=== PATIENT | male | born 1965 | race Caucasian/White ===

== ENCOUNTER → 2016-08-12 | Outpatient (CLI) | payer BC, OTHER ==
[~2016-08-12] VITALS: Ht 177.8 cm; Wt 92.1 kg
[~2016-08-12] MED LIST: ATORVASTATIN CA40 MG PO; COQ-10100 MG PO; FISH OIL 1,001000 M2 PO; IRBESARTAN150 MG PO; UNICOMPLEX M TA1 TA1 PO
--- NOTE | ~2016-08-12 | HPC ---
[facility] [place] [address] PAIN MANAGEMENT CONSULTATION Name: ARCHANA ORTEZ Room #: REG [facility] Olga.#: [id number] Admission: 08/12/16 Attend Phys: Ray Wise DO Discharge: Date of : 63 Report #: [id number] THIS REPORT FOR: //name// CC: Ray Wise DATE OF SERVICE: 08/12/2016 DATE OF SERVICE: 08/12/2016 CHIEF COMPLAINT: Low back pain, right lower extremity pain and paresthesias. HISTORY OF PRESENT ILLNESS: As you know, the patient is a very pleasant 50-year-old male, who has had a longstanding history of low back pain, right lower extremity pain and paresthesias. The patient states his pain began 09/29/2015. He denies injury or trauma that may have led to symptoms. He states he has trial multiple conservative treatments, but has yet to see significant pain improvement. He has seen multiple physicians and will ultimately indicates that his pain is due to changes in his lumbar region. He has been referred to our clinic for evaluation with recent imaging studies. He indicates today his pain is intermittent, describes pain as aching, places the current pain score 4/10, daily average of 5/10, worst the pain has been is 5/10. The patient states that sitting, standing for any length of time exacerbates symptoms, ice and stretching tends to improve pain. He has been referred for evaluation for suspected lumbar radiculopathy. PAST MEDICAL HISTORY: 1. Dyslipidemia. 2. Hypertension. PAST SURGICAL HISTORY: None. SOCIAL HISTORY: The patient denies tobacco, IV or illicit drug use. Admits to approximately 2 alcoholic beverages per day. He is a real estate legal secretary. He is working, not receiving workmen's compensation nor is he trying to obtain disability benefits. He is not in litigation in regards to his pain. He is unaccompanied at today's visit. REVIEW OF SYSTEMS: Positive for decrease in appetite, low back pain, right lower extremity pain, hypertension. All other review of systems negative per 12-point review of systems other than those listed in history of present illness. Pain impact score 25/70 indicating mild to moderate interference of daily activities secondary to pain. [address] [address] PAIN MANAGEMENT CONSULTATION Name: ARCHANA ORTEZ Room #: REG [facility] Olga.#: [id number] Admission: 08/12/16 Attend Phys: Ray Wise DO Discharge: Date of : 63 Report #: [id number] ALLERGIES: No known drug allergies. CURRENT MEDICATIONS: Coenzyme Q 100 mg once a day, multivitamin 1 tab per day, omega-3 fish oil 1 tab per day, atorvastatin 40 mg per day, irbesartan 150 mg once a day. IMAGING: MRI of the lumbar spine obtained on 01/29/2016, shows degenerative lumbar spondylosis at L3-L4 with disk bulge and right foraminal far lateral herniation causing moderate central canal stenosis and severe right neural foraminal narrowing. At L4-L5, there is a small central disk herniation, small facet arthropathy changes, mild spinal canal stenosis that is central and mild bilateral neural foraminal narrowing L5-S1 is normal. PHYSICAL EXAMINATION: VITAL SIGNS: Blood pressure 143/91, pulse is 92, respiratory rate 16, unlabored. The patient is 97% on room air, height 5 feet 10 inches tall, weight 203 pounds, BMI calculated 29.1. GENERAL: Well developed, well nourished, well hydrated 50-year-old male, who appears stated age, placing current pain score 4/10. HEENT: Normocephalic, atraumatic. Pupils equal, round, reactive to light. Extraocular muscles are intact. Sclerae nonicteric without injection. NEUROLOGIC: Cranial nerves 2-12 grossly intact. Speech is fluent. The patient deemed an excellent historian. LUNGS: Clear, no wheeze, rhonchi or rales. CARDIOVASCULAR: Regular. No appreciable gallop or rub. ABDOMEN: Soft, nontender, nondistended, normoactive bowel sounds. EXTREMITIES: Show no clubbing, no cyanosis, no edema. MUSCULOSKELETAL: Lower extremity strength appears equal and symmetrical 5/5, muscle bulk and tone equal and symmetrical. He is intact to light touch from L1 through S2 dermatomes. Deep tendon reflexes equal and symmetrical at patella and Achilles. Ankle clonus negative. Babinski is negative. Gait is slightly antalgic favoring right lower extremity over left. Seated straight leg raising negative. Supine straight leg raising positive right. ASSESSMENT: 1. Symptomatic lumbar radiculopathy. 2. Displacement of lumbar intervertebral disk with radiculopathy. 3. Spinal stenosis of lumbar spine. 4. Severe right neural foraminal stenosis. 5. Chronic intractable pain. PLAN: 1. Based on today's physical exam, the history the patient has provided, the description the patient uses in regards to pain as well as the location of symptoms and the findings on MRI, likely source of the patient's pain is the [address] [address] PAIN MANAGEMENT CONSULTATION Name: ARCHANA ORTEZ Room #: REG [facility] Greene#: [id number] Admission: 08/12/16 Attend Phys: Ray WiseDO Discharge: Date of : 63 Report #: [id number] disk herniation noted at L3-L4. The patient has severe neural foraminal stenosis, which is easily noted on MRI imaging. There is very little room for the exiting nerve root in the neural foramen. There is also fairly significant right lateral recess stenosis at this same level. The combination of which leads to the patient's current pain issues. The patient and I discussed at length today treatment options for a lumbar radicular pain secondary to the findings on his MRI. These treatment options were provided as followed. The patient and I discussed options for treatment including physical therapy, stretching exercises, core strengthening, this could assist in alleviating some of the symptoms. Would also recommend with the physical therapy inversion tables and traction techniques which can alleviate some of the pressure in the neural foramen. We discussed medication management for neuropathic pain medications and consistent nonsteroidal anti-inflammatory. We discussed epidural injections under fluoroscopic guidance whether this be central canal injection or a transforaminal injection, both could be effective, though it would be virtually impossible to place a needle safely at the L3-L4 level on the right due to the significant foraminal stenosis noted on imaging. The compressive force at that level would likely preclude any distribution of medication to be able to enter into the area. We also discussed spinal cord stimulator therapy as a possible option as well as surgical. After reviewing risks and benefits of all proposed treatment options, the patient chose to consider the discussions today and he will contact our clinic about the treatment options. 2. The patient was provided a sample of Gralise. He will start at 300 mg dose then escalate to 600 mg the second night, then follow the titration pack as directed. We have provided the patient with Gralise therapy to provide analgesic benefit be a neuropathic pain medication. Gralise itself is much more tolerable medication for individuals, who are high functioning professionals and require higher levels of attention and cognitive function. We recommend this medications specifically, as it does provide 24-hour improvement in neuropathic pain with once a day dosing 2 hours before bedtime. Patient will start the titration of the medication. He will contact our clinic once he reaches an efficacious level. We would then provide a full prescription to his local pharmacy to continue the therapy for the foreseeable future. I did advise the patient this medication will not change the pathology that is there, it will change his perception of pain and should allow the patient to be more pain free with this type of treatment. The patient was given a sample of Gralise today to initiate tonight. 3. The patient will contact our clinic once he has reached an efficacious level of the Gralise. He is to watch for any side effects with its use including somnolence, decrease in mental acuity, disorientation and confusion. If he notes any side effects, he is to discontinue immediately and call for further instructions. 4. We wish to thank you for the opportunity to see the patient in consultation. We will keep you apprised of his response to treatment, as we address his [address] [address] PAIN MANAGEMENT CONSULTATION Name: ARCHANA ORTEZ Room #: REG [facility] Greene#: [id number] Admission: 08/12/16 Attend Phys: Ray Wise DO Discharge: Date of : 63 Report #: [id number] lumbar radicular symptoms. Again, we wish to thank you for the opportunity to participate in his care. By: [id number] Ray Wise DO /nt
[2016-08-12 08:27] VITALS: BP 143/91
== END | disposition home or self-care (01) ==
LOC: PAIN 06:49
DX: M51.16 Intervertebral disc disorders with radiculopathy, lumbar region (principal); M48.06 Spinal stenosis, lumbar region; G89.29 Other chronic pain; I10 Essential (primary) hypertension; E78.5 Hyperlipidemia, unspecified; Z79.899 Other long term (current) drug therapy

== ENCOUNTER → 2016-09-09 | Outpatient (CLI) | payer BC, OTHER ==
[~2016-09-09] VITALS: Ht 177.8 cm; Wt 91.8 kg
[~2016-09-09] MED LIST changes: +MAGOX 400400 MG PO; +MELATONIN5 M1 PO
[2016-09-09 09:33] VITALS: BP 104/76
== END | disposition home or self-care (01) ==
LOC: PAIN 07:03
DX: M51.16 Intervertebral disc disorders with radiculopathy, lumbar region (principal); M48.06 Spinal stenosis, lumbar region; G89.29 Other chronic pain; Z87.891 Personal history of nicotine dependence; Z98.890 Other specified postprocedural states

== ENCOUNTER → 2016-12-09 | Outpatient (CLI) | payer BC, OTHER ==
[~2016-12-09] VITALS: Ht 177.8 cm; Wt 94.9 kg
[~2016-12-09] MED LIST changes: +DICLOFENAC SOD50 M1 PO; +LYRICA 75 MG CA75 MG PO; +VITAMIN B COMP1 EACH PO
--- NOTE | ~2016-12-09 | HPC ---
[facility] [address] [address] PAIN MANAGEMENT CONSULTATION Name: ARCHANA ORTEZ Room #: REG [facility] Olga.#: [id number] Admission: 12/09/16 Attend Phys: Neelima Wise DO Discharge: Date of : 63 Report #: [id number] THIS REPORT FOR: //name// CC: Neelima Wise DATE OF SERVICE: 12/09/2016 REFERRING PHYSICIAN: Neelima Huynh MD CHIEF COMPLAINT: Low back pain, right lower extremity pain with paresthesias. HISTORY OF PRESENT ILLNESS: As you know, the patient is a very pleasant 51-year-old male who returns today in visit for medication management. The patient has been diagnosed with lumbar radicular symptoms secondary to spinal stenosis and the displacement of lumbar intervertebral disk, he also suffers from facet arthropathy of lower lumbar spine, the combination of which leads to chronic intractable pain. The patient returns today in followup visit stating that his pain is nearly fully alleviated by the Lyrica therapy. He is very pleased with response to Lyrica, he is taking 75 mg 3 tabs p.o. at bedtime with good and prolonged efficacy. He states that his pain and numbness and tingling has resolved almost completely, he is experiencing some tension and some stretching sensations in the area, but this completely tolerable for him. He is denying any side effects to Lyrica, returning today in followup visit requesting refills of therapy as it is working beneficially in providing good and prolonged analgesic benefit. ALLERGIES: No known drug allergies. CURRENT MEDICATIONS: Coenzyme Q 100 mg once a day, multivitamin 1 tab per day, omega-3 fish oil 1 tab per day, atorvastatin 40 mg per day, irbesartan 150 mg per day, and Lyrica 225 mg p.o. at bedtime. SOCIAL HISTORY: The patient denies tobacco, IV or illicit drug use, admits to 2 alcohol beverages per day. He is a real estate office supervisor, he is working, not receiving workmen's compensation, unaccompanied today. IMAGING: No new imaging available. PHYSICAL EXAMINATION: VITAL SIGNS: Blood pressure 149/96, pulse 82, respiratory rate 16 and unlabored, the patient is 98% on room air, height 5 feet 10 inches tall, weight 209.2 pounds, and BMI calculated 30. GENERAL: Well-developed, well-nourished, well-hydrated 51-year-old male, appearing his stated age, placing current pain score at 0/10. [place] [address] PAIN MANAGEMENT CONSULTATION Name: NEELIMAARCHANA Room #: REG [facility]#: [id number] Admission: 12/09/16 Attend Phys: Neelima Wise DO Discharge: Date of : 63 Report #: [id number] HEENT: Normocephalic, atraumatic. Pupils are equal, round, and reactive to light. Extraocular muscles are intact. Sclerae nonicteric without injection. NEUROLOGIC: Cranial nerves 2-12 are grossly intact. Speech is fluent. LUNGS: Clear. No wheeze, rhonchi, or rales. CARDIOVASCULAR: Regular. No appreciable gallop or rub. ABDOMEN: Soft, nontender, and nondistended. EXTREMITIES: Show no clubbing, no cyanosis, and no edema. MUSCULOSKELETAL: Seated straight leg raising negative. Supine straight leg raising positive on the right. Fabere's test negative. Modified Gaenslen's positive for axial low back pain. Ankle clonus negative. Gait is normal. ASSESSMENT: 1. Symptomatic lumbar radiculopathy. 2. Displacement of lumbar intervertebral disk with radiculopathy. 3. Spinal stenosis of lumbar spine. 4. Severe neural foraminal stenosis of lumbar spine. 5. Chronic intractable pain. PLAN: 1. The patient returns today in followup visit with excellent benefit from Lyrica therapy. He is taking 225 mg at night, noticing excellent benefit, 100% improvement in overall pain, he is experiencing intermittent muscle tightness and aching, but the profound pain and numbness and tingling has completely resolved with Lyrica therapy. He returns for refills of the therapy. We discussed at length today the length of time he should be on Lyrica, I would recommend continuing another 2 months with good and prolonged pain control, if he wishes then to begin reducing his medication, I would recommend reducing by 75 mg dose for a 7-day period; if his pain does return, return to the 225 mg dosing, continue the therapy for another 2 months. The patient understands and has requested refills for the next 3 months in case medication therapy is continued to be necessary. 2. The patient was provided a prescription of Lyrica 75 mg dose 3 tabs p.o. at bedtime, given the patient #90 tablets, release dates of today, 4 weeks from today, 8 weeks from today, 3 months' worth of medication. We have provided the patient with the 75 mg tablets as he does wish to trial periodically to wean off the medication, he does not want to be on medication chro. We have given the 75 mg dose, so that he can reduce his medication if he wishes, but then can reescalate the medication if necessary. We will see him back in followup visit in 3 months, I am pleased to see he is doing well. <ELECTRONICALLY SIGNED> By: Neelima Wise DO 12/10/16 0807 [id number] Neelima Wise DO /nt
[2016-12-09 09:42] VITALS: BP 149/96
== END | disposition home or self-care (01) ==
LOC: PAIN 07:20
DX: M51.16 Intervertebral disc disorders with radiculopathy, lumbar region (principal); G89.29 Other chronic pain; Z68.30 Body mass index [BMI] 30.0-30.9, adult; Z79.899 Other long term (current) drug therapy; Z87.891 Personal history of nicotine dependence

== ENCOUNTER → 2017-03-24 | Outpatient (CLI) | payer BC, OTHER ==
[~2017-03-24] VITALS: Ht 182.9 cm; Wt 96.2 kg
[~2017-03-24] MED LIST changes: +COREG6.25 MG PO; +LYRICA225 MG PO
--- NOTE | ~2017-03-24 | HPC ---
[facility] [place] [address] PAIN MANAGEMENT CONSULTATION Name: ARCHANA ORTEZ [id number] Admission: 03/24/17 Attend Phys: Neelima Wise DO Discharge: Date of : 63 Report #: [id number] THIS REPORT FOR: //name// CC: NEELIMA Wise DATE OF SERVICE: 03/24/2017 CHIEF COMPLAINT: Low back pain, right lower extremity pain and paresthesias. HISTORY OF PRESENT ILLNESS: As you know, the patient is a very pleasant 51-year-old male who returns today in followup visit for medication management. He states medications are working beneficially for pain control. He is placing current pain score 0/10. States pain began late summer, no injury, no trauma. He continues to experience some pulling sensation, but this is completely tolerable for him. The patient is very pleased with the medications. He is denying any side effects with therapy, returning in followup visit for refills of this treatment. ALLERGIES: No known drug allergies. CURRENT MEDICATIONS: Irbesartan 150 mg once a day, atorvastatin 40 mg per day, omega-3 fish oil 1 tab per day, multivitamin 1 tab per day, melatonin 5 mg p.o. at bedtime, vitamin B complex 1 tab per day, Lyrica 225 mg once a day. SOCIAL HISTORY: The patient denies tobacco, IV or illicit drug use. Admits to 2 alcohol beverages per day. 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 IMAGING: No new imaging available. PHYSICAL EXAMINATION: VITAL SIGNS: Blood pressure 151/91, pulse 97, respiratory rate 14 and unlabored. The patient is 97% on room air, height 6 feet tall, weight 212 pounds, BMI calculated 28.7. GENERAL: Well-developed, well-nourished, well-hydrated, 51-year-old male. He appears his stated age, placing pain score today 0/10. HEENT: Normocephalic, atraumatic. Pupils equal, round, reactive to light. Extraocular muscles are intact. Sclerae nonicteric, without injection. EXTREMITIES: Show no clubbing, no cyanosis, no edema. MUSCULOSKELETAL: Seated straight leg raising negative. Supine straight leg raising positive on the left. LOLY test negative. Modified Gaenslen's positive for axial low back pain. Muscle bulk and tone equal and symmetrical in lower extremities. Ankle clonus negative[place] [address] PAIN MANAGEMENT CONSULTATION Name: ARCHANA ORTEZ Room #: REG [facility] Jc#: [id number] Admission: 03/24/17 Attend Phys: Neelima Wise DO Discharge: Date of : 63 Report #: [id number] ASSESSMENT: 1. Symptomatic lumbar radiculopathy. 2. Spinal stenosis of the lumbar spine. 3. Displacement of lumbar intervertebral disk with radiculopathy. 4. Severe neural foraminal stenosis of lumbar spine. 5. Chronic intractable pain. PLAN: 1. The patient returns today in followup visit for continuation of medication therapy. Overall, the patient states he is doing very well. Pain level of 0/10. He tends to experience some increasing tension and some pulling sensations in the right lower extremity, but otherwise doing great from a standpoint of medication management. He returns today in followup visit requesting refill on medications, denying any side effects with their use. 2. The patient was provided a refill prescription of his Lyrica 225 mg dose. He has requested that we provide the 75 mg tablets as he tends to use the medication 3 at a time when his pain is intense, he can reduce it to 2 at a time when his pain is less intense. This allows the patient some flexibility with use of his medication. We have provided him with #90 of the tablets and 5 refills, 6 months' worth of medication. He is doing very well with medication, has needed no changes in a very long period of time and he can follow up with us on twice a year basis if medication management is continued, he can return earlier if interventional treatments are necessary. 3. We will see the patient back in followup visit on an as needed basis. I am pleased to see the patient is doing well. We will be available to see him back as needed. <ELECTRONICALLY SIGNED> By: Neelima Wise DO 04/01/17 0902 [id number] Neelima Wise DO /nt
[2017-03-24 13:36] VITALS: BP 151/91
== END ==
LOC: PAIN 06:55
DX: M54.16 Radiculopathy, lumbar region (principal); M48.061 Spinal stenosis, lumbar region without neurogenic claudication

== ENCOUNTER → 2017-10-06 | Outpatient (CLI) | payer BC, OTHER ==
[~2017-10-06] VITALS: Ht 182.9 cm; Wt 93.3 kg
--- NOTE | ~2017-10-06 | HPC ---
[facility] [place] [address] PAIN MANAGEMENT CONSULTATION Name: ARCHANA ORTEZ [id number] Admission: 10/06/17 Attend Phys: Ray Wise DO Discharge: Date of : 63 Report #: [id number] THIS REPORT FOR: //name// CC: Ray Wise DATE OF SERVICE: 10/06/2017 REFERRING PHYSICIAN: Ray Huynh M.D. CHIEF COMPLAINT: Low back pain and right lower extremity pain. HISTORY OF PRESENT ILLNESS: As you know, the patient is a very pleasant 52-year-old male who returns today in followup visit for medication management. The patient was diagnosed with lumbar radiculopathy secondary to spinal stenosis. His spinal stenosis is multifactorial secondary to displacement of a lumbar intervertebral disk and facet changes in the lumbar region. He returns today requesting refill on medications as he finds them beneficial. He uses Lyrica 75 mg 3 tabs p.o. at bedtime. He is doing this without side effects of somnolence, decreased mental acuity, disorientation and confusion. He returns requesting refill on the medications to continue the analgesic benefit. ALLERGIES: No known drug allergies. CURRENT MEDICATIONS: Irbesartan 150 mg once a day, atorvastatin 40 mg per day, omega-3 fish oil 1 tab per day, multivitamin 1 tab per day, melatonin 5 mg p.o. at bedtime, vitamin B complex 1 tab per day, pregabalin 75 mg 3 tabs p.o. at bedtime and carvedilol 6.25 mg twice a day. SOCIAL HISTORY: The patient denies tobacco, IV or illicit drug use. Admits to 2 alcohol beverages per day. He is a commercial roofer. 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 IMAGING DATA: No new imaging available. PHYSICAL EXAMINATION: VITAL SIGNS: Blood pressure 144/100, pulse 83 and respiratory rate 16 and unlabored. The patient 99% on room air, height 6 feet tall, weight 205 pounds and BMI calculated 27.9. GENERAL: Well-developed, well-nourished and well-hydrated 52-year-old male, appearing his stated age. He is placing pain score today 2-3/10. HEENT: Normocephalic and atraumatic. Pupils equal, round and reactive to light. EXTREMITIES: Show no clubbing, no cyanosis and no edema. MUSCULOSKELETAL: Seated straight leg raising negative. Supine straight leg [address] [address] PAIN MANAGEMENT CONSULTATION Name: ARCHANA ORTEZ Room #: REG [facility].#: [id number] Admission: 10/06/17 Attend Phys: Ray Wise DO Discharge: Date of : 63 Report #: [id number] raising remains positive on the right, mild in nature noted at 70 degrees. Lili's test negative. Modified Gaenslen's positive for axial low back pain. Ankle clonus negative. Babinski is negative. Muscle bulk and tone equal and symmetrical. ASSESSMENT: 1. Symptomatic lumbar radiculopathy. 2. Displacement of lumbar intervertebral disk with radiculopathy. 3. Spinal stenosis of lumbar spine. 4. Severe neural foraminal stenosis of the lumbar spine. 5. Facet arthropathy of the lumbar spine. 6. Lumbar degeneration. 7. Chronic intractable pain. PLAN: 1. The patient returns today in followup visit requesting refill on medications. He feels medications are working beneficially for pain control. He is placing pain score at around 2-3/10 today as he has run out of his Lyrica a couple of days back. He returns today in followup visit requesting refill of medications as he has found great benefit with their use. He returns requesting refills for the next 6 months. 2. The patient will be provided prescription of Lyrica 75 mg dose 3 tabs p.o. at bedtime, #90 with 5 refills, 6 months' worth of medication. 3. The patient can return to our clinic earlier if he wishes to discuss interventional treatments. At present, he is doing well with medication management. He has had no side effects to the therapy and does feel it is getting benefit. I recommend he continue this treatment. By: [id number] Ray Wise DO /nt
[2017-10-06 09:13] VITALS: BP 144/100
== END ==
LOC: PAIN 06:50
DX: M51.16 Intervertebral disc disorders with radiculopathy, lumbar region (principal); M48.061 Spinal stenosis, lumbar region without neurogenic claudication; G89.4 Chronic pain syndrome; M25.78 Osteophyte, vertebrae

== ENCOUNTER → 2018-04-27 | Outpatient (CLI) | payer BC, OTHER ==
[~2018-04-27] VITALS: Ht 182.9 cm; Wt 94.3 kg
[2018-04-27 08:05] VITALS: BP 161/109
--- NOTE | 2018-04-27 08:11 | NUR ---
Pain Clinic Assessment: 1. History of Osteoarthritis: Not Applicable History of Rheumatoid Arthritis: Not Applicable 2. Height: 6 ft. 0 in. 182.9 cm. Weight: 207.8 lb. oz. 94.258 kg. Patient's BMI: 28.2 3. Vital Signs: BP: 161/109 Pulse: 85 Resp: 16 Temp: 02 Sat: 97 ECG Mon: 4. Pain Intensity: 0 5. Fall Risk: Dizziness: N Needs help standing or walking: N Fallen in the last 3 months: N Fall risk comments: 6. Patient on Blood Thinner: None 7. History of Hypertension: Y 8. Opioid Therapy greater than 6 weeks: N Opiate Contract Signed: 9. Risk Assessment Tool Provided: 10. Functional Assessment Tool: 11. Recreational Drug Use: Past greater than 3 mos Drug Type: Tobacco Use: Former Smoker Tobacco Type: Amount or Packs/day: How Many Years: Alcohol Use: Yes Frequency: Daily Quant: 1
--- NOTE | 2018-04-28 08:10 | HPC ---
[facility] [place] [address] PAIN MANAGEMENT CONSULTATION Name: ARCHANA ORTEZ [facility] [id number] Admission: 04/27/18 ������������������ Attend Phys: Neelima Wise DO Discharge: ������������������ Date of : 63 Report #: [id number] THIS REPORT FOR: //name// CC: NEELIMA Wise DATE OF SERVICE: 04/27/2018 CHIEF COMPLAINT: Low back pain, right lower extremity pain and paresthesias. HISTORY OF PRESENT ILLNESS: As you know, the patient is a very pleasant 52-year-old male who returns today in followup visit for medication management. His medications are to address his lumbar radiculopathy secondary to spinal stenosis. We have stabilized the patient on a dose of Lyrica 75 mg tablets 3 tabs p.o. at bedtime for a total of 225 mg. This in conjunction with chiropractic taping, tends to improve his overall pain. He returns today in followup visit requesting refill of medications. He is denying any side effects to the medication at this time. He is placing pain score at 0/10. States when pain is present, it is dull in its presentation. He states this in conjunction with the chiropractic kinetic tapes work well for pain control. ALLERGIES: No known drug allergies. CURRENT MEDICATIONS: Irbesartan 150 mg per day, atorvastatin 40 mg per day, omega-3 fish oil 1 tab per day, multivitamin 1 tab per day, melatonin 5 mg per day, multivitamin 1 tab per day, carvedilol 6.25 mg b.i.d., pregabalin 75 mg 3 tabs p.o. at bedtime. SOCIAL HISTORY: The patient denies tobacco, IV or illicit drug use. Admits to 2 alcoholic beverages per day. He is currently employed in commercial real estate. 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 IMAGING: No new imaging available. PHYSICAL EXAMINATION: VITAL SIGNS: Blood pressure 161/109, pulse 85, respiratory rate 16 and unlabored. The patient is 97% on room air, height 6 feet tall, weight 207.8 pounds, BMI calculated 28.2. GENERAL: Well-developed, well-nourished, well-hydrated 52-year-old male appearing stated age, placing current pain score at 0/10. HEENT: Normocephalic, atraumatic. Pupils equal, round, reactive to light. Extraocular muscles are intact. Speech fluent. EXTREMITIES: Show no clubbing, no cyanosis, and no edema. MUSCULOSKELETAL: Seated straight leg raise negative[place] [address] PAIN MANAGEMENT CONSULTATION Name: ARCHANA ORTEZ Room #: REG TREY Greene#: [id number] Admission: 04/27/18 ������������������ Attend Phys: Neelima Wise DO Discharge: ������������������ Date of : 63 Report #: [id number] raising positive right. Lili's test negative. Modified Gaenslen's positive for axial low back pain. Ankle clonus negative. Babinski is negative. ASSESSMENT: 1. Symptomatic lumbar radiculopathy. 2. Displacement of lumbar intervertebral disk with radiculopathy. 3. Spinal stenosis of lumbar spine. 4. Severe neural foraminal stenosis of the lumbar spine. 5. Facet arthropathy of the lumbar spine. 6. Lumbar degeneration. 7. Chronic intractable pain. PLAN: 1. The patient returns today in followup visit reporting pain score about 0/10. He states the combination of [place] tape in conjunction with the Lyrica 225 mg at night provide good and prolonged benefit. He returns today requesting refill on the medication. He is denying side effects of somnolence, decreased mental acuity, disorientation and confusion. 2. The patient was provided prescription of Lyrica 75 mg dose 3 tabs p.o. at bedtime. I have given the patient #90 tablets with 2 refills, 3 months' worth of medication. 3. The patient was given samples of Lyrica today 75 mg tablet. He has enough for approximately one month in sample form before he needs to fill the above prescription, which actually gives him 4 months' worth of medication. 4. We will see the patient back in followup visit as he runs out of his Lyrica to continue the therapy. We are pleased to see the patient is doing well with this medication. We will see him back in followup visit to refill the medications when necessary. ��������������������������������������������� <ELECTRONICALLY SIGNED> ���������������������������������������� By: Neelima Wise DO ��������������������������������������������� 04/28/18 0810 [id number] Neelima Wise DO /nt
== END ==
LOC: PAIN 06:48
DX: M51.16 Intervertebral disc disorders with radiculopathy, lumbar region (principal); M48.062 Spinal stenosis, lumbar region with neurogenic claudication; M12.88 Other specific arthropathies, not elsewhere classified, other specified site; G89.4 Chronic pain syndrome; Z79.899 Other long term (current) drug therapy

== ENCOUNTER → 2018-08-18 | Outpatient (CLI) | payer BC, OTHER ==
[~2018-08-18] VITALS: Ht 182.9 cm; Wt 92.6 kg
[2018-08-18 09:14] VITALS: BP 119/88
--- NOTE | 2018-08-18 09:20 | NUR ---
Pain Clinic Assessment: 1. History of Osteoarthritis: Not Applicable History of Rheumatoid Arthritis: Not Applicable 2. Height: 6 ft. 0 in. 182.9 cm. Weight: 204.2 lb. oz. 92.625 kg. Patient's BMI: 27.7 3. Vital Signs: BP: 119/88 Pulse: 83 Resp: 16 Temp: 02 Sat: 95 ECG Mon: 4. Pain Intensity: 2-3 5. Fall Risk: Dizziness: N Needs help standing or walking: N Fallen in the last 3 months: N Fall risk comments: 6. Patient on Blood Thinner: None 7. History of Hypertension: Y 8. Opioid Therapy greater than 6 weeks: N Opiate Contract Signed: 9. Risk Assessment Tool Provided: 10. Functional Assessment Tool: 11. Recreational Drug Use: Past greater than 3 mos Drug Type: Tobacco Use: Former Smoker Tobacco Type: Amount or Packs/day: How Many Years: Alcohol Use: Yes Frequency: Daily Quant: 1
--- NOTE | 2018-08-31 13:03 | HPC ---
[facility] [address] [address] PAIN MANAGEMENT CONSULTATION Name: ARCHANA ORTEZ Room #: REG [facility] MPerlita.#: [id number] Admission: 08/18/18 ������������������ Attend Phys: Ray Wise DO Discharge: ������������������ Date of : 63 Report #: [id number] THIS REPORT FOR: //name// CC: Ray Wise DATE OF SERVICE: 08/18/2018 REFERRING PHYSICIAN: Ray Huynh M.D. CHIEF COMPLAINT: Low back pain and right lower extremity pain with paresthesias. HISTORY OF PRESENT ILLNESS: As you know, the patient is a very pleasant 52-year-old male returning in followup visit for continuation of medication management. The patient is reporting pain 2-3/10. He is denying any side effects to the medications at present. He places pain today at 2-3/10, states his pain is pulling in sensation, aching, numbness when describing symptoms. Pain started in the summer of 2015 and no noted injury or trauma. Begins in the low back, radiates down the leg, also in the neck and radiates towards the right hand. He indicates that some of his pain is improved with "kinetic tape." He also utilizes medications with good efficacy. He has been looking into the possibility of undergoing stem cell injections, though he has yet to commit to doing this activity. He returns today in followup visit requesting refill on his Lyrica for which he is taking 75 mg up to 3 times a day. ALLERGIES: No known drug allergies. CURRENT MEDICATIONS: Irbesartan 150 mg once a day, atorvastatin 40 mg per day, omega-3 fish oil 1 tab per day, multivitamin 1 tab per day, melatonin 5 mg 2 tabs p.o. at bedtime, vitamin B complex 1 tab p.o. every day, carvedilol 6.25 mg b.i.d. and Lyrica 225 mg per day. SOCIAL HISTORY: The patient denies tobacco or IV or illicit drug use. Admits to approximately 2 alcoholic beverages per day. He is currently employed in commercial real estate, is working, not receiving workmen's compensation, unaccompanied today. IMAGING DATA: There is no new imaging available. PHYSICAL EXAMINATION: VITAL SIGNS: Blood pressure 119/88, pulse 83 and respiratory rate 16 and unlabored. The patient is 95% on room air. Height 6 feet tall, weight 204.2 pounds and BMI calculated 27.7. GENERAL: Well-developed, well-nourished, well-hydrated 52[place] [address] PAIN MANAGEMENT CONSULTATION Name: ARCHANA ORTEZ [facility] #[facility] [id number] Admission: 08/18/18 ������������������ Attend Phys: Ray Wise DO Discharge: ������������������ Date of : 63 Report #: [id number] appearing stated age, pain is rated around 2-3/10. HEENT: Normocephalic and atraumatic. Pupils equal, round and reactive to light. EXTREMITIES: Show no clubbing, no cyanosis and no edema. MUSCULOSKELETAL: Lower extremity strength appears symmetrical 5/5, intact to light touch from L1 through S2 dermatomes. Seated straight leg raising negative. Supine straight leg raising positive on the right. Lili's test negative. Modified Gaenslen's positive for axial low back pain. Ankle clonus negative. Babinski is negative. Muscle bulk and tone is symmetrical when comparing left lower extremity to right. Station appears normal. ASSESSMENT: 1. Symptomatic lumbar radiculopathy. 2. Displacement of lumbar intervertebral disk with radiculopathy. 3. Spinal stenosis of the lumbar spine. 4. Severe neural foraminal stenosis of the lumbar spine. 5. Facet arthropathy of the lumbar spine. 6. Lumbar degeneration. 7. Chronic intractable pain. PLAN: 1. The patient returns today in followup visit for continuation of medication therapy. He feels medications are working beneficially for pain control. He is taking 225 mg of Lyrica per day. He reports good efficacy, no significant side effects of sleepiness, disorientation, confusion or mental slowing. He feels this is working beneficially for pain control at present. He is looking into the possibility of undergoing stem cell injections in the lumbar spine. He does understand that this is an experimental procedure but has shown some efficacy in recent anecdotal evidence. He is looking into this further. He is going to follow up with that physician in the next couple of weeks. 2. The patient was provided prescription of Lyrica 75 mg dose. He will take 3 tabs p.o. at bedtime. He was given #90 tablets with multiple refills. The patient was advised to continue the medication as directed. If he wishes to make adjustments, he needs to contact our clinic or return for followup visit. 3. We will see the patient back in followup visit on an as needed basis. We wish him luck with the stem cell injection if he undergoes this procedure. He will keep us apprised of response. We will see him back in followup visit for medication management at our previously approved time. ��������������������������������������������� <ELECTRONICALLY SIGNED> ���������������������������������������� By: Ray Wise DO ��������������������������������������������� 08/31/18 1303 0901 [id number] Ray Wise, /nt
== END ==
LOC: PAIN 06:46
DX: M47.26 Other spondylosis with radiculopathy, lumbar region (principal); M48.061 Spinal stenosis, lumbar region without neurogenic claudication; M51.26 Other intervertebral disc displacement, lumbar region; G89.29 Other chronic pain; M12.88 Other specific arthropathies, not elsewhere classified, other specified site